=== PATIENT | female | born 1975 | race Caucasian/White ===

== ENCOUNTER 2017-05-09 17:33 | Emergency (ER) | payer BC ==
--- NOTE | 2017-05-09 18:24 | RAD ---
RIGHT FOREARM: 05/09/17 Two views. HISTORY: Injury to right forearm with pain. The radius and ulna appear intact. No evidence of fracture. IMPRESSION: No acute fracture identified. POS: [facility]
--- NOTE | 2017-05-09 18:25 | RAD ---
RIGHT HAND: 05/09/17 Three views. HISTORY: Injury to right hand with pain. FINDINGS/IMPRESSION: The carpals are normally aligned. Moderate to severe degenerative changes at the first carpometacarpa l joint with subluxation at this joint. The metacarpals and phalanges appear intact. No evidence of a cute fracture. POS: [facility]
== END 2017-05-09 19:30 | disposition home or self-care (01) ==
LOC: SCSER 17:33
DX: S66.911A Strain of unspecified muscle, fascia and tendon at wrist and hand level, right hand, initial encounter (principal); E03.9 Hypothyroidism, unspecified; G43.909 Migraine, unspecified, not intractable, without status migrainosus; F17.210 Nicotine dependence, cigarettes, uncomplicated; Z79.899 Other long term (current) drug therapy; W23.0XXA Caught, crushed, jammed, or pinched between moving objects, initial encounter